=== PATIENT | female | born 1945 | race Caucasian/White ===

== ENCOUNTER → 2018-08-26 | Outpatient (CLI) | payer MEDICARE, BC ==
[~2018-08-26] MED LIST: ALEVE220 MG PO; AMLODIPINE BESY10 MG PO; ASPIR 8181 M1 PO; ASPIRIN EC325 M1 PO; COLACE100 MG PO; LEVOTHYROXIN0.025 MG PO; LISINOPRIL20 MG PO; LOPERAMIDE 2 MG2 M1 PO; METAMUCIL PAC1 UDPKT PO; OXYCODONE HCL 55 MG PO; XARELTO10 MG PO
== END ==
LOC: M.MRI 11:14
DX: M47.897 Other spondylosis, lumbosacral region (principal); N28.1 Cyst of kidney, acquired

== ENCOUNTER → 2018-10-05 | Outpatient (CLI) | payer MEDICARE, BC | LOC: M.MRI 16:59 | DX: M50.123 Cervical disc disorder at C6-C7 level with radiculopathy (principal); M48.02 Spinal stenosis, cervical region ==